=== PATIENT | female | born 1970 | race Caucasian/White ===

== ENCOUNTER 2023-01-13 15:23 | Emergency (ER) | payer OTHER ==
[~2023-01-13] VITALS: Ht 162.5 cm; Wt 72.6 kg
[2023-01-13] MEDS ORDERED: PROVENTIL HFA6.7 GM INH (16:46)
[2023-01-13] MEDS ORDERED: BENZONATATE100 M1 PO (16:46)
[2023-01-13] MEDS ORDERED: LEVOFLOXACIN500 MG PO (16:46)
== END 2023-01-13 16:51 | disposition home or self-care (01) ==
LOC: ED 15:23
DX: J40 Bronchitis, not specified as acute or chronic (principal); E78.5 Hyperlipidemia, unspecified